=== PATIENT | female | born 1945 | race African-American/Black ===

== ENCOUNTER 2019-09-17 20:23 | Inpatient (IN) | payer OTHER ==
[~2019-09-17] VITALS: Ht 167.6 cm; Wt 111.6 kg
[2019-09-17] MEDS ORDERED: MECLIZINE 25MG TABLET PO ONE (22:30)
[2019-09-17 22:45] LABS: BASOPHILS % 0.7 % (0.0-2.0); EOSINOPHILS % 1.2 % (0.0-5.0); HEMATOCRIT. 40.5 % (42.0-52.0); HEMOGLOBIN. 13.6 g/dL (14.0-18.0); MEAN CORPUSCULAR HEMOGLOBIN 27.5 pg (28.0-32.0); MEAN CORPUSCULAR VOLUME 82.2 fL (80.0-94.0); MEAN PLATELET VOLUME 8.7 fl (7.4-10.4); MONOCYTES % 5.1 % (2.0-8.0); PLATELET 266 x1000/uL (130-400); RED BLOOD CELL COUNT 4.93 mill/uL (4.7-6.1); RED CELL DISTRIBUTION WIDTH 14.1 % (11.6-14.6)
[2019-09-17 22:51] LABS: CHLORIDE 108 mEq/L (98-107)
[2019-09-18] MEDS ORDERED: ACETAMINOPHEN 325MG TABLET PO PRN ×2 (07:45)
[2019-09-18] MEDS ORDERED: MAGNESIUM/ALUMINUM HYDROXIDE/SIMETHICONE 30ML UDC PO PRN (07:45)
[2019-09-18] MEDS ORDERED: DIPHENHYDRAMINE 50MG/ML VIAL IV PRN (07:45)
[2019-09-18] MEDS ORDERED: CLONIDINE 0.1MG TABLET PO PRN (07:45)
[2019-09-18] MEDS ORDERED: NA PHOS,M-B/NA PHOS,DI-BA ENEMA 118ML PR PRN (07:45)
[2019-09-18 08:28] LABS: BASOPHILS % 0.8 % (0.0-2.0); EOSINOPHILS % 1.6 % (0.0-5.0); HEMOGLOBIN. 13.1 g/dL (12.0-16.0); LYMPHOCYTES % 23.6 % (20.0-50.0); MEAN CORPUSCULAR HEMOGLOBIN 27.1 pg (28.0-32.0); MEAN CORPUSCULAR VOLUME 82.6 fL (81.0-99.0); MEAN PLATELET VOLUME 8.2 fl (7.4-10.4); MONOCYTES % 8.8 % (2.0-8.0); NEUTROPHILS % 65.2 % (40.0-76.0); PLATELET 239 x1000/uL (130-400); RED BLOOD CELL COUNT 4.84 mill/uL (4.2-5.4)
[2019-09-18] MEDS: MECLIZINE 25MG TABLET PO SCH ×3 (08:30→21:31)
[2019-09-18 08:37] LABS: CHLORIDE 109 mEq/L (98-107)
[2019-09-18] MEDS ORDERED: ENOXAPARIN 40MG/0.4ML SYR SUBCUT SCH (09:00)
[2019-09-18] MEDS ORDERED: METO25TA6 MT (13:32)
[2019-09-18] MEDS ORDERED: ATOR20TA65 MT (13:32)
[2019-09-18] MEDS ORDERED: AMLO5TAB88 MT (13:32)
[2019-09-18 13:46] VITALS: BP 130/65
[2019-09-18] MEDS: HYDROCHLOROTHIAZIDE 12.5MG CAPSULE PO SCH (14:03)
[2019-09-18 17:00] LABS: CREATINE KINASE 283 IU/L (26-192); CREATINE KINASE MB FRACTION 1.9 ng/mL (0.5-3.6)
[2019-09-18 20:00] VITALS: BP 132/84
[2019-09-18] MEDS: ENOXAPARIN 30MG/0.3ML SYR SUBCUT SCH (21:31)
[2019-09-19] VITALS: BP 118/67
[2019-09-19 00:07] LABS: CREATINE KINASE 386 IU/L (26-192)
[2019-09-19 04:00] VITALS: BP 128/71
[2019-09-19] MEDS: MECLIZINE 25MG TABLET PO SCH (06:03)
[2019-09-19 08:00] VITALS: BP 118/69
[2019-09-19] MEDS: HYDROCHLOROTHIAZIDE 12.5MG CAPSULE PO SCH (08:41)
[2019-09-19] MEDS: ENOXAPARIN 30MG/0.3ML SYR SUBCUT SCH (08:42)
[2019-09-19 10:05] LABS: BASOPHILS % 0.7 % (0.0-2.0); HEMATOCRIT. 39.5 % (36.0-48.0); HEMOGLOBIN. 13.1 g/dL (12.0-16.0); LYMPHOCYTES % 33.3 % (20.0-50.0); MEAN CORPUSCULAR HEMOGLOBIN 27.3 pg (28.0-32.0); MEAN CORPUSCULAR VOLUME 82.4 fL (81.0-99.0); MEAN PLATELET VOLUME 8.5 fl (7.4-10.4); MONOCYTES % 9.7 % (2.0-8.0); NEUTROPHILS % 50.3 % (40.0-76.0); PLATELET 240 x1000/uL (130-400); RED CELL DISTRIBUTION WIDTH 14.3 % (11.6-14.6)
[2019-09-19 10:11] LABS: CHLORIDE 108 mEq/L (98-107)
[2019-09-19 10:20] LABS: LDL CHOLESTEROL 81 mg/dL (5-100)
[2019-09-19 10:21] LABS: HDL CHOLESTEROL 54 mg/dL (40-59)
[2019-09-19] MEDS ORDERED: MECL-159 MT (10:42)
[2019-09-19 12:00] VITALS: BP 129/78
[2019-09-19 13:56] VITALS: BP 129/78
[2019-09-19 14:15] LABS: CLARITY URINE CLEAR (CLEAR); COLOR URINE YELLOW (YELLOW); KETONES URINE NEGATIVE (NEGATIVE); LEUKOCYTE ESTERASE URINE NEGATIVE (NEGATIVE); NITRITE URINE NEGATIVE (NEGATIVE); OCCULT BLOOD URINE NEGATIVE (NEGATIVE); PROTEIN URINE NEGATIVE (NEGATIVE); SPECIFIC GRAVITY URINE 1.018 (1.005-1.030)
[2019-09-19 14:35] LABS: *BARBITURATES SCREEN URINE NEGATIVE (NEGATIVE)
[2019-09-19 14:36] LABS: *AMPHETAMINES SCREEN URINE NEGATIVE (NEGATIVE); *BENZODIAZEPINES SCREEN URINE NEGATIVE (NEGATIVE); *COCAINE SCREEN URINE NEGATIVE (NEGATIVE); CANNABINOID URINE SCREEN NEGATIVE (NEGATIVE); METHADONE URINE SCREEN NEGATIVE (NEGATIVE); OPIATES URINE SCREEN NEGATIVE (NEGATIVE)
[2019-09-19 14:37] LABS: PHENCYCLIDINE URINE SCREEN NEGATIVE (NEGATIVE)
== END 2019-09-19 14:10 | disposition home or self-care (01) | DRG 149 ==
LOC: ER 20:23 → EDSEX 20:23 → 6EST 23:48 → ENRESERV 09-18 10:29 → CANRESERV 09-18 10:29 → EDBEDREQSVC 09-18 10:52 → ENRESERV 09-18 12:28
PROVIDERS: ADMIT Family Medicine; ATTEND Family Medicine
DX: R42 Dizziness and giddiness (principal); E44.1 Mild protein-calorie malnutrition; E66.9 Obesity, unspecified; I10 Essential (primary) hypertension; Z68.39 Body mass index [BMI] 39.0-39.9, adult; Z88.8 Allergy status to other drugs, medicaments and biological substances
CPT/HCPCS: 36415; 71045; 80053; 80061; 80305; 81003; 82550; 82553; 83880; 84484; 85025; 93005; 93970; 99285; J1650; J8597